=== PATIENT | male | born 1975 | race Two or more races ===

== ENCOUNTER → 2023-10-11 07:50 | Outpatient (REF) | payer OTHER, SELFPAY | LOC: HWRAD 07:50 | PROVIDERS: ATTENDING PHYSICIAN Specialist; FAMILY PHYSICIAN Nurse Practitioner Adult Health | DX: R31.0 Gross hematuria (principal); R31.21 Asymptomatic microscopic hematuria | CPT/HCPCS: 76770 ==

== ENCOUNTER → 2024-07-22 17:09 | Outpatient (REF) | payer OTHER, SELFPAY | LOC: RAD 17:09 | PROVIDERS: ATTENDING PHYSICIAN Specialist; FAMILY PHYSICIAN Nurse Practitioner Adult Health | DX: R31.21 Asymptomatic microscopic hematuria (principal) | CPT/HCPCS: 76770 ==